=== PATIENT | female | born 1995 | race Hispanic/Latino ===

== ENCOUNTER 2016-10-02 12:40 | Emergency (ER) | payer OTHER ==
[2016-10-02] MEDS ORDERED: ACETAMINOPHEN 325 MG TAB As Ordered ONE (13:29)
[2016-10-02 13:48] LABS: BASO % 0.4 % (0.0-1.0); EOS # 0.6 K/mm3 (0.0-0.50); EOS % 4.8 % (0.0-3.0); LARGE UNSTAINED CELL # 0.2 K/mm3 (0.0-0.4); LARGE UNSTAINED CELL % 1.4 % (0.0-4.0); LYMPH # 1.5 K/mm3 (1.5-6.5); LYMPH % 12.9 % (24.0-44.0); MEAN CORPUSCULAR HEMOGLOBIN 29.1 pg (27.0-33.0); MEAN CORPUSCULAR HGB CONC 33.5 g/dl (32.0-36.5); MONO # 0.4 K/mm3 (0.0-0.8); MONO % 3.3 % (0.0-5.0); NEUTROPHILS # 8.9 K/mm3 (1.8-7.7); NEUTROPHILS % 77.3 % (36.0-66.0); PLATELET COUNT, AUTOMATED 204 k/mm3 (150-450); RED CELL DISTRIBUTION WIDTH 12.1 % (11.5-14.5); WHITE BLOOD COUNT 11.4 K/mm3 (4.0-10.0)
[2016-10-02 14:04] LABS: ALBUMIN 3.7 GM/DL (3.2-5.2); ALBUMIN/GLOBULIN RATIO 1.06 (1.00-1.93); ALKALINE PHOSPHATASE 60 U/L (45-117); ALT/SGPT 17 U/L (12-78); ANION GAP 10 MEQ/L (8-16); AST/SGOT 14 U/L (15-37); BILIRUBIN,DIRECT < 0.1 MG/DL (0.0-0.2); BILIRUBIN,TOTAL 0.2 MG/DL (0.2-1.0); BLOOD UREA NITROGEN 5 MG/DL (7-18); CARBON DIOXIDE LEVEL 23 MEQ/L (21-32); CHLORIDE LEVEL 107 MEQ/L (98-107); CREATININE FOR GFR 0.44 MG/DL (0.55-1.02); GLOMERULAR FILTRATION RATE > 60.0 (>60); GLUCOSE, FASTING 79 MG/DL (70-105); POTASSIUM SERUM 3.9 MEQ/L (3.5-5.1); SODIUM LEVEL 140 MEQ/L (136-145); TOTAL PROTEIN 7.2 GM/DL (6.4-8.2)
--- NOTE | 2016-10-02 15:30 | REP ---
Obstetric sonography: History: Left lower quadrant abdominal pain. Findings: No comparison study. Scanning through the gravid uterus demonstrates a viable single intrauterine gestation in a breech lie. An anterior placenta is seen without evidence of abruption. Amniotic fluid is subjectively normal. heart rate is recorded at 147 beats per minute. No extrauterine abnormality is observed. It is too early for anatomic survey but no gross anomaly is seen. Closed cervical length is 3.7 cm measured transabdominally. Biometry chart: BPD 2.7 cm = 14 weeks 6 days HC 10.6 cm = 15 weeks 0 days AC 8.6 cm = 14 weeks 6 days FL 1.5 cm = 14 weeks 3 days HL 1.8 cm = 15 weeks 1 day HC/AC ratio normal 1.23. Cephalic index 0.69 (0.70-0.86. Estimated weight 104 grams, 0 pounds 3 ounces, 24th percentile for 15 weeks 1 day. Impression: Viable single intrauterine gestation at 14 weeks 6 days by today's composite sonographic criteria. BRENDA by today's sonography March 27, 2017. No or maternal complication is identified. Signed by Tereso Glover MD 10/02/2016 04:20 P
--- NOTE | 2016-10-02 16:17 | EDDOCDS ---
Nurse's Notes [facility] Name: Aida Saunders Age: 21 yrs Sex: Female : 1995 Arrival Date: 10/02/2016 Time: 12:40 Bed 7 Private MD: SAIGE Nath Diagnosis: Abdominal and pelvic pain; related conditions, unspecified, second trimester Presentation: 10/02 12:45 Presenting complaint: EMS states: abd pain x2 days : 15 weeks . No vaginal ttb discharge. Coming from [place]. Risk factors: the patient reports no vaginal bleeding. Adult Sepsis Screening: The patient does not have new or worsening altered mentation. Patient's respiratory rate is less than 22. Systolic blood pressure is greater than 100. Patient has a qSOFA score of 0- Negative Sepsis Screen. Suicide/Homicide risk assessment- the patient denies having any suicidal and/or homicidal ideations and does not present with any other emotional, behavioral or mental health complaints. Transition of care: patient was received from a primary care office; Pham. 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 ttb Triage Assessment: 12:48 General: Appears in no apparent distress, well nourished, well groomed, Behavior is ttb appropriate for age, cooperative, pleasant. Pain: Location: left lower abd into center abd Pain currently is 7 out of 10 on a pain scale. Pt Declines HIV testing. Neurological: Level of Consciousness is awake, alert. Cardiovascular: Chest pain is denied. Respiratory: Denies cough, shortness of breath. GI: Reports constipation, lower abdominal pain, Denies diarrhea, nausea, vomiting. : Reports urinary frequency Denies burning with urination, urgency. Derm: Skin is normal. Musculoskeletal: Reports pain in lower abd. 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 Vitamin Unknown Oral (Last dose: 10/01/2016 12:00) - PMHx: asthma as child; - PSHx: none; - Social history: Smoking status: Patient states was never smoker of tobacco. Patient/guardian denies using alcohol, street drugs, No barriers to communication noted, The patient speaks fluent Eritrean, Speaks appropriately for age. - Family history: Not pertinent. - : The pt / caregiver states he / she is not on anticoagulants. Home medication list is obtained from the patient. - Exposure Risk Screening:: None identified. Screenin:00 Screening information is obtained from the patient. Fall risk: No risks identified. dsf Assistance ADL's: requires no assistance with activities of daily living. Abuse/DV Screen: The patient / caregiver reports he/she is: not in a situation that causes fear, pain or injury. Nutritional screening: No deficits noted. Advance Directives: Currently, there is no health care proxy. home support is adequate. Assessment: 13:11 Adult Sepsis Screening: The patient does not have new or worsening altered mentation. dsf Patient's respiratory rate is less than 22. Systolic blood pressure is greater than 100. Patient has a qSOFA score of 0- Negative Sepsis Screen. General: Appears in no apparent distress, Behavior is appropriate for age, cooperative. Pain: Location: suprapubic area and left lower quadrant Pain currently is 7 out of 10 on a pain scale. Quality of pain is described as stabbing. Neurological: Level of Consciousness is awake, alert, Oriented to person, place, time. Cardiovascular: Capillary refill < 3 seconds. Respiratory: Airway is patent Respiratory effort is even, unlabored, Respiratory pattern is regular, symmetrical. GI: Abdomen is flat. : Denies vaginal bleeding. Derm: Skin is pink, warm & dry. 14:11 General: Appears in no apparent distress, comfortable, Behavior is appropriate for age, dsf cooperative. Pain: Location: left lower quadrant and suprapubic area. Neurological: Level of Consciousness is awake, alert, Oriented to person, place, time. Cardiovascular: Capillary refill < 3 seconds Heart tones S1 S2 present. Respiratory: Airway is patent Respiratory effort is even, unlabored, Respiratory pattern is regular, symmetrical, Breath sounds are clear bilaterally. GI: Abdomen is non- distended Bowel sounds present X 4 quads. Abd is soft X 4 quads Abd is tender to palpation in right lower quadrant and left lower quadrant. Derm: Skin is pink, warm & dry. 14:52 General: Appears in no apparent distress, comfortable, Behavior is appropriate for age, dsf cooperative. Pain: Location: left lower quadrant and suprapubic area Pain currently is 7 out of 10 on a pain scale. Neurological: Level of Consciousness is awake, alert. Cardiovascular: Capillary refill < 3 seconds. Respiratory: Airway is patent Respiratory effort is even, unlabored, Respiratory pattern is regular, symmetrical. Derm: Skin is pink, warm & dry. 15:52 Adult Sepsis Screening: The patient does not have new or worsening altered mentation. dsf Patient's respiratory rate is less than 22. Systolic blood pressure is greater than 100. Patient has a qSOFA score of 0- Negative Sepsis Screen. General: Appears in no apparent distress, comfortable, Behavior is appropriate for age, cooperative. Pain: Location: left lower quadrant and suprapubic area. Neurological: Level of Consciousness is awake, alert, Oriented to person, place, time. Cardiovascular: Capillary refill < 3 seconds. Respiratory: Airway is patent Respiratory effort is even, unlabored, Respiratory pattern is regular, symmetrical. Derm: Skin is pink, warm & dry. Vital Signs: 12:47 BP 138 / 66; Pulse 76; Resp 18; Temp 98.4(T); Pulse Ox 100% on R/A; Pain 7/10; ad 14:33 Pain 7/10; dsf 15:56 BP 114 / 56 (auto/); Pulse 81; Resp 20; Temp 98.8(TE); Pulse Ox 99% on R/A; Pain 7/10; dsf Vitals: 12:48 Log In Time N/A - ambulance arrival. ttb 13:11 Heart Tones 138BPM. dsf ED Course: 12:41 Patient visited by Hilda Santana PCA. ct3 12:41 Pham [facility] [place] is Private Physician. ct3 12:41 Patient moved to Waiting ct3 12:42 Patient moved to 7 ct3 12:47 Triage Initiated ttb 12:48 Patient visited by Renee Palafox. ad 12:52 Patient visited by Abena Tarango RN. ttb 13:01 [facility] le 13:03 UA Sent. dsf 13:07 Patient visited by Fabiola Webster FNP. le 13:08 Patient visited by Fabiola Webster FNP. le 13:12 Patient visited by Mckenna Zapata RN. dsf 13:35 Basic Metabolic Profile Sent. dsf 13:35 CBC with Diff Sent. dsf 13:35 Lipase Sent. dsf 13:35 Liver Profile Sent. dsf 13:36 Patient visited by Mckenna Zapata RN. dsf 13:36 Inserted saline lock: 20 gauge in left antecubital area The patient tolerated the dsf procedure well. 14:18 Patient visited by Mckenna Zapata RN. dsf 14:29 Patient visited by Fabiola Webster FNP. le 14:37 Patient moved to Ultrasound am10 14:51 Patient moved to 7 dsf 14:53 Patient visited by Mckenna Zapata RN. dsf 15:36 US Obs Single Gest Returned. EDMS 15:36 DUPLEX SCAN LIMITED (DOPPLER) Returned. EDMS 15:51 Juan Manuel Sellers is Referral Physician. le 16:00 Discontinued lock intact, bleeding controlled, pressure dressing applied, No dsf redness/swelling at site. No procedures done that require assistance. 16:01 The patient / caregiver is instructed regarding the plan of care and ED course. dsf Administered Medications: 13:33 Drug: NS 0.9% 1000 ml [sodium chloride 0.9 % intravenous solution] Route: IV; Rate: ttb bolus; Site: left antecubital; 15:13 Follow up: IV Status: Completed infusion; IV Intake: 1000ml dsf 13:33 Drug: Acetaminophen 650 mg [acetaminophen 325 mg tablet (2 tabs)] Route: PO; ttb 14:33 Follow up: Pain 03/04 Adult dsf 15:13 Drug: NS 0.9% 1000 ml [sodium chloride 0.9 % injection solution] Route: IV; Rate: 100 dsf mL/hr; Site: left antecubital; 16:02 Follow up: IV Status: Infusion discontinued; IV Intake: 200ml dsf Intake: 15:13 IV: 1000.00ml; Total: 1000.00ml. dsf 16:02 IV: 200.00ml; Total: 1200.00ml. dsf Order Results: Lab Order: UA; SPEC'M 10/02/16 12:53 Test: APPEARANCE, URINE; Value: CLEAR; Range: CLEAR; Status: F Test: COLOR, URINE; Value: COLORLESS; Range: YELLOW; Status: F Test: PH,URINE; Value: 7.0; Range: 5.0-9.0; Units: UNITS; Status: F Test: SPECIFIC GRAVITY URINE AUTO; Value: 1.002; Range: 1.002-1.035; Status: F Test: PROTEIN, URINE AUTO; Value: NEGATIVE; Range: NEGATIVE; Units: mg/dL; Status: F Test: GLUCOSE, URINE (UA) AUTO; Value: NEGATIVE; Range: NEGATIVE; Units: mg/dL; Status: F Test: KETONE, URINE AUTO; Value: NEGATIVE; Range: NEGATIVE; Units: mg/dL; Status: F Test: UROBILINOGEN, URINE AUTO; Value: 0.2; Range: 0.0-2.0; Units: mg/dL; Status: F Test: BILIRUBIN, URINE AUTO; Value: NEGATIVE; Range: NEGATIVE; Status: F Test: NITRITE, URINE AUTO; Value: NEGATIVE; Range: NEGATIVE; Status: F Test: LEUKOCYTE ESTERASE, URINE AUTO; Value: NEGATIVE; Range: NEGATIVE; Status: F Test: BLOOD, URINE BLOOD; Value: NEGATIVE; Range: NEGATIVE; Status: F Test: WBC, URINE AUTO; Value: 0; Range: 0-3; Units: /HPF; Status: F Test: RBC, URINE AUTO; Value: 0; Range: 0-3; Units: /HPF; Status: F Test: BACTERIA, URINE AUTO; Value: 1+; Range: NEGATIVE; Abnormal: Above high normal; Status: F Test: SQUAMOUS EPITHELIAL CELL UR AU; Value: 0; Range: 0-6; Units: /HPF; Status: F Test: HYALINE CAST, URINE AUTO; Value: 0; Range: 0-1; Units: /LPF; Status: F Lab Order: Basic Metabolic Profile; [facility]' 10/02/16 13:34 Test: GLUCOSE, FASTING; Value: 79; Range: 70-105; Units: MG/DL; Status: F Test: BLOOD UREA NITROGEN; Value: 5; Range: 7-18; Abnormal: Below low normal; Units: MG/DL; Status: F Test: CREATININE FOR GFR; Value: 0.44; Range: 0.55-1.02; Abnormal: Below low normal; Units: MG/DL; Status: F Test: GLOMERULAR FILTRATION RATE; Value: > 60.0; Range: >60; Status: F Test: SODIUM LEVEL; Value: 140; Range: 136-145; Units: MEQ/L; Status: F Test: POTASSIUM SERUM; Value: 3.9; Range: 3.5-5.1; Units: MEQ/L; Status: F Test: CHLORIDE LEVEL; Value: 107; Range: 98-107; Units: MEQ/L; Status: F Test: CARBON DIOXIDE LEVEL; Value: 23; Range: 21-32; Units: MEQ/L; Status: F Test: ANION GAP; Value: 10; Range: 8-16; Units: MEQ/L; Status: F Test: CALCIUM LEVEL; Value: 9.0; Range: 8.5-10.1; Units: MG/DL; Status: F Test Note: ; Units are mL/min/1.73 m2 Chronic Kidney Disease Staging per NKF: Stage I & II GFR >=60 Normal to Mildly Decreased Stage III GFR 30-59 Moderately Decreased Stage IV GFR 15-29 Severely Decreased Stage V GFR <15 Very Little GFR Left ESRD GFR <15 on CLINICAL DERMATOLOGIST Lab Order: CBC with Diff; SPEC'M 10/02/16 13:34 Test: WHITE BLOOD COUNT; Value: 11.4; Range: 4.0-10.0; Abnormal: Above high normal; Units: K/mm3; Status: F Test: RED BLOOD COUNT; Value: 4.12; Range: 4.00-5.40; Units: M/mm3; Status: F Test: HEMOGLOBIN; Value: 12.0; Range: 12.0-16.0; Units: g/dl; Status: F Test: HEMATOCRIT; Value: 35.9; Range: 36.0-47.0; Abnormal: Below low normal; Units: %; Status: F Test: MEAN CORPUSCULAR VOLUME; Value: 87.0; Range: 80.0-96.0; Units: fl; Status: F Test: MEAN CORPUSCULAR HEMOGLOBIN; Value: 29.1; Range: 27.0-33.0; Units: pg; Status: F Test: MEAN CORPUSCULAR HGB CONC; Value: 33.5; Range: 32.0-36.5; Units: g/dl; Status: F Test: RED CELL DISTRIBUTION WIDTH; Value: 12.1; Range: 11.5-14.5; Units: %; Status: F Test: PLATELET COUNT, AUTOMATED; Value: 204; Range: 150-450; Units: k/mm3; Status: F Test: NEUTROPHILS %; Value: 77.3; Range: 36.0-66.0; Abnormal: Above high normal; Units: %; Status: F Test: LYMPH %; Value: 12.9; Range: 24.0-44.0; Abnormal: Below low normal; Units: %; Status: F Test: MONO %; Value: 3.3; Range: 0.0-5.0; Units: %; Status: F Test: EOS %; Value: 4.8; Range: 0.0-3.0; Abnormal: Above high normal; Units: %; Status: F Test: BASO %; Value: 0.4; Range: 0.0-1.0; Units: %; Status: F Test: LARGE UNSTAINED CELL %; Value: 1.4; Range: 0.0-4.0; Units: %; Status: F Test: NEUTROPHILS #; Value: 8.9; Range: 1.8-7.7; Abnormal: Above high normal; Units: K/mm3; Status: F Test: LYMPH #; Value: 1.5; Range: 1.5-6.5; Units: K/mm3; Status: F Test: MONO #; Value: 0.4; Range: 0.0-0.8; Units: K/mm3; Status: F Test: EOS #; Value: 0.6; Range: 0.0-0.50; Abnormal: Above high normal; Units: K/mm3; Status: F Test: BASO #; Value: 0.0; Range: 0.0-0.2; Units: K/mm3; Status: F Test: LARGE UNSTAINED CELL #; Value: 0.2; Range: 0.0-0.4; Units: K/mm3; Status: F Lab Order: Lipase; SPEC'10/02/16 13:34 Test: LIPASE; Value: 86; Range: 73-393; Units: U/L; Status: F Lab Order: Liver Profile; SPEC10/02/16 13:34 Test: AST/SGOT; Value: 14; Range: 15-37; Abnormal: Below low normal; Units: U/L; Status: F Test: ALT/SGPT; Value: 17; Range: 12-78; Units: U/L; Status: F Test: ALKALINE PHOSPHATASE; Value: 60; Range: 45-117; Units: U/L; Status: F Test: BILIRUBIN,TOTAL; Value: 0.2; Range: 0.2-1.0; Units: MG/DL; Status: F Test: BILIRUBIN,DIRECT; Value: < 0.1; Range: 0.0-0.2; Units: MG/DL; Status: F Test: TOTAL PROTEIN; Value: 7.2; Range: 6.4-8.2; Units: GM/DL; Status: F Test: ALBUMIN; Value: 3.7; Range: 3.2-5.2; Units: GM/DL; Status: F Test: ALBUMIN/GLOBULIN RATIO; Value: 1.06; Range: 1.00-1.93; Status: F Radiology Order: US Obs Single Gest Test: US Obs Single Gest REASON FOR EXAMINATION: LLQ abd pain, ? cyst vs constipation; Obstetric sonography:; ; History: Left lower quadrant abdominal pain.; ; Findings: No comparison study. Scanning through the gravid uterus demonstrates; a viable single intrauterine gestation in a breech lie. An anterior; placenta is seen without evidence of abruption. Amniotic fluid is subjectively; normal. heart rate is recorded at 147 beats per minute. No extrauterine; abnormality is observed. It is too early for anatomic survey but no gross; anomaly is seen. Closed cervical length is 3.7 cm measured; transabdominally.; ; Biometry chart:; BPD 2.7 cm = 14 weeks 6 days; HC 10.6 cm = 15 weeks 0 days; AC 8.6 cm = 14 weeks 6 days; FL 1.5 cm = 14 weeks 3 days; HL 1.8 cm = 15 weeks 1 day; ; HC/AC ratio normal 1.23. Cephalic index 0.69 (0.70-0.86. Estimated weight; 104 grams, 0 pounds 3 ounces, 24th percentile for 15 weeks 1 day.; ; Impression:; ; Viable single intrauterine gestation at 14 weeks 6 days by today's composite; sonographic criteria. BRENDA by today's sonography March 27, 2017. No or; maternal complication is identified.; ; ; ; ; Unreviewed; Radiology Order: DUPLEX SCAN LIMITED (DOPPLER) Test: DUPLEX SCAN LIMITED (DOPPLER) REASON FOR EXAMINATION: RI OF OVARIES; Obstetric sonography:; ; History: Left lower quadrant abdominal pain.; ; Findings: No comparison study. Scanning through the gravid uterus demonstrates; a viable single intrauterine gestation in a breech lie. An anterior; placenta is seen without evidence of abruption. Amniotic fluid is subjectively; normal. heart rate is recorded at 147 beats per minute. No extrauterine; abnormality is observed. It is too early for anatomic survey but no gross; anomaly is seen. Closed cervical length is 3.7 cm measured; transabdominally.; ; Biometry chart:; BPD 2.7 cm = 14 weeks 6 days; HC 10.6 cm = 15 weeks 0 days; AC 8.6 cm = 14 weeks 6 days; FL 1.5 cm = 14 weeks 3 days; HL 1.8 cm = 15 weeks 1 day; ; HC/AC ratio normal 1.23. Cephalic index 0.69 (0.70-0.86. Estimated weight; 104 grams, 0 pounds 3 ounces, 24th percentile for 15 weeks 1 day.; ; Impression:; ; Viable single intrauterine gestation at 14 weeks 6 days by today's composite; sonographic criteria. BRENDA by today's sonography March 27, 2017. No or; maternal complication is identified.; ; ; ; ; Unreviewed; Outcome: 15:51 Discharge ordered by Provider. le 16:01 Ultrasound Study completed. dsf 16:14 Discharge Assessment: Patient awake, alert and oriented x 3. No cognitive and/or dsf functional deficits noted. Patient verbalized understanding of disposition instructions. patient administered narcotics - no. The following High Risk Discharge criteria are identified: None. Discharged to home ambulatory. Condition: stable. Discharge instructions given to patient, Instructed on discharge instructions, follow up and referral plans. Demonstrated understanding of instructions, Pt was receptive of discharge instructions/ teaching. Property sent home with patient. 16:15 Patient left the ED. dsf Signatures: Dispatcher [employer] EDMS Renee Palafox Lisa, Rhona Bah am10 Hilda Santana, DOCUMENT MANAGEMENT TECHNICIAN DOCUMENT MANAGEMENT TECHNICIAN ct3 Mckenna Zapata,RN RN dsf Abena Traango RN RN ttb Corrections: (The following items were deleted from the chart) 12:51 12:45 Status: The patient is a dependent. ttb ttb MTDD
--- NOTE | 2016-10-02 16:17 | EDDOCDS ---
Physician Documentation [facility] Name: Aida Saunders Age: 21 yrs Sex: Female : 1995 Arrival Date: 10/02/2016 Time: 12:40 Bed 7 Private MD: Pham [facility] [place] [facility] Disposition: 10/02/16 15:51 Discharged to Home/Self Care. Impression: Abdominal and pelvic pain, related conditions, unspecified, second trimester. - Condition is Stable. - Discharge Instructions: Second Trimester of , [id number]. - Medication Reconciliation, Local Pharmacy Hours form. - Follow up: Juan Manuel Sellers; When: Keep your scheduled appointment next week; Reason: Recheck today's complaints, Continuance of care. - Problem is new. - Symptoms are unchanged. - Notes: Keep hydrated Use Tylenol, as needed, for pain Your pain may be due to constipation. Use Miralax daily to soften up stool to move through the intestines easier. Return to the ED for worsening symptoms, especially if you're also experiencing fever, vomiting/diarrhea, vaginal bleeding/discharge, urinary symptoms or any other concerns Historical: - Allergies: no known allergies; - Home Meds: 1. Vitamin Unknown Oral (Last dose: 10/01/2016 12:00) - PMHx: asthma as child; - PSHx: none; - Social history: Smoking status: Patient states was never smoker of tobacco. Patient/guardian denies using alcohol, street drugs, No barriers to communication noted, The patient speaks fluent Ukrainian, Speaks appropriately for age. - Family history: Not pertinent. - : The pt / caregiver states he / she is not on anticoagulants. Home medication list is obtained from the patient. - Exposure Risk Screening:: None identified. 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 sd1 13:01 UA Ordered. EDMS 13:21 NS 0.9% 1000 ml IV at bolus once ordered. le 13:21 NS 0.9% 1000 ml IV at 100 mL/hr continuous ordered. le 13:21 IV Saline Lock ordered. le 13:21 Undress patient appropriately for examination ordered. le 13:21 Acetaminophen Tablet 650 mg PO once ordered. le 13:22 NOTHING BY MOUTH+DIET ordered. EDMS 13:23 Basic Metabolic Profile Ordered. EDMS 13:23 CBC with Diff Ordered. EDMS 13:23 Lipase Ordered. EDMS 13:23 Liver Profile Ordered. EDMS 14:27 UA Reviewed. le 14:27 Basic Metabolic Profile Reviewed. le 14:27 CBC with Diff Reviewed. le 14:27 Liver Profile Reviewed. le 14:27 Lipase Reviewed. le 14:30 US Obs Single Gest Ordered. EDMS 14:53 DUPLEX SCAN LIMITED (DOPPLER) Ordered. EDMS 15:44 Financial registration complete. [email or web address] Administered Medications: 13:33 Drug: NS 0.9% 1000 ml [sodium chloride 0.9 % intravenous solution] Route: IV; Rate: ttb bolus; Site: left antecubital; 15:13 Follow up: IV Status: Completed infusion; IV Intake: 1000ml dsf 13:33 Drug: Acetaminophen 650 mg [acetaminophen 325 mg tablet (2 tabs)] Route: PO; ttb 14:33 Follow up: Pain 7/10 Adult dsf 15:13 Drug: NS 0.9% 1000 ml [sodium chloride 0.9 % injection solution] Route: IV; Rate: 100 dsf mL/hr; Site: left antecubital; 16:02 Follow up: IV Status: Infusion discontinued; IV Intake: 200ml dsf Signatures: Dispatcher [employer] EDMS Arlene Akbar MD MD sd1 Fabiola Webster, MACHINE SHOP SPECIALIST MACHINE SHOP SPECIALIST Mckenna Morales RN RN dsf Abena Tarango RN RN ttb Lily Zuñiga, Reg Reg [email or web address] The chart was reviewed and I authenticate all verbal orders and agree with the evaluation and treatment provided.Corrections: (The following items were deleted from the chart) 13:05 13:01 URINE CULTURE+MALCOLM ordered. EDMS EDMS MTDD
--- NOTE | 2016-10-04 17:16 | EDDOCDS ---
Physician Documentation [facility] Name: Aida Saunders Age: 21 yrs Sex: Female : 1995 Arrival Date: 10/02/2016 Time: 12:40 Bed 7 Private MD: Pham [facility] Disposition: 10/02/16 15:51 Discharged to Home/Self Care. Impression: Abdominal and pelvic pain, related conditions, unspecified, second trimester. - Condition is Stable. - Discharge Instructions: Second Trimester of , [id number]. - Medication Reconciliation, Local Pharmacy Hours form. - Follow up: Juan Manuel Sellers; When: Keep your scheduled appointment next week; Reason: Recheck today's complaints, Continuance of care. - Problem is new. - Symptoms are unchanged. - Notes: Keep hydrated Use Tylenol, as needed, for pain Your pain may be due to constipation. Use Miralax daily to soften up stool to move through the intestines easier. Return to the ED for worsening symptoms, especially if you're also experiencing fever, vomiting/diarrhea, vaginal bleeding/discharge, urinary symptoms or any other concerns Historical: - Allergies: no known allergies; - Home Meds: 1. Vitamin Unknown Oral (Last dose: 10/01/2016 12:00) - PMHx: asthma as child; - PSHx: none; - Social history: Smoking status: Patient states was never smoker of tobacco. Patient/guardian denies using alcohol, street drugs, No barriers to communication noted, The patient speaks fluent Khmer, Speaks appropriately for age. - Family history: Not pertinent. - : The pt / caregiver states he / she is not on anticoagulants. Home medication list is obtained from the patient. - Exposure Risk Screening:: None identified. 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 sd1 13:01 UA Ordered. EDMS 13:21 NS 0.9% 1000 ml IV at bolus once ordered. le 13:21 NS 0.9% 1000 ml IV at 100 mL/hr continuous ordered. le 13:21 IV Saline Lock ordered. le 13:21 Undress patient appropriately for examination ordered. le 13:21 Acetaminophen Tablet 650 mg PO once ordered. le 13:22 NOTHING BY MOUTH+DIET ordered. EDMS 13:23 Basic Metabolic Profile Ordered. EDMS 13:23 CBC with Diff Ordered. EDMS 13:23 Lipase Ordered. EDMS 13:23 Liver Profile Ordered. EDMS 14:27 UA Reviewed. le 14:27 Basic Metabolic Profile Reviewed. le 14:27 CBC with Diff Reviewed. le 14:27 Liver Profile Reviewed. le 14:27 Lipase Reviewed. le 14:30 US Obs Single Gest Ordered. EDMS 14:53 DUPLEX SCAN LIMITED (DOPPLER) Ordered. EDMS 15:44 Financial registration complete. [email or web address] 16:48 [facility] Payment Agreement was scanned into [employer] and attached to record. [email or web address] 10/03 11:23 T-Sheet-- Draft Copy was scanned into [employer] and attached to record. gb Administered Medications: 10/02 13:33 Drug: NS 0.9% 1000 ml [sodium chloride 0.9 % intravenous solution] Route: IV; Rate: ttb bolus; Site: left antecubital; 15:13 Follow up: IV Status: Completed infusion; IV Intake: 1000ml dsf 13:33 Drug: Acetaminophen 650 mg [acetaminophen 325 mg tablet (2 tabs)] Route: PO; ttb 14:33 Follow up: Pain 7/10 Adult dsf 15:13 Drug: NS 0.9% 1000 ml [sodium chloride 0.9 % injection solution] Route: IV; Rate: 100 dsf mL/hr; Site: left antecubital; 16:02 Follow up: IV Status: Infusion discontinued; IV Intake: 200ml dsf Signatures: Dispatcher [employer] EDArlene Freeman MD MD sd1 Aundrea Guardado, Reg Reg gb Fabiola Webster, ENTRY LEVEL TRUCK DRIVER Mckenna Pride RN RN dsf Abena Tarango RN RN ttb Lily Zuñiga, Reg Reg [email or web address] The chart was reviewed and I authenticate all verbal orders and agree with the evaluation and treatment provided.Corrections: (The following items were deleted from the chart) 13:05 13:01 URINE CULTURE+MALCOLM ordered. EDMS EDMS Attachments: 16:48 [facility] Payment Agreement [email or web address] 10/03 11:23 T-Sheet-- Draft Copy gb Chart Complete MTDD
--- NOTE | 2016-10-04 17:16 | EDDOCDS ---
Nurse's Notes [facility] Name: Aida Saunders Age: 21 yrs Sex: Female : 1995 Arrival Date: 10/02/2016 Time: 12:40 Bed 7 Private MD: SAIGE Nath Diagnosis: Abdominal and pelvic pain; related conditions, unspecified, second trimester Presentation: 10/02 12:45 Presenting complaint: EMS states: abd pain x2 days : 15 weeks . No vaginal ttb discharge. Coming from [place]. Risk factors: the patient reports no vaginal bleeding. Adult Sepsis Screening: The patient does not have new or worsening altered mentation. Patient's respiratory rate is less than 22. Systolic blood pressure is greater than 100. Patient has a qSOFA score of 0- Negative Sepsis Screen. Suicide/Homicide risk assessment- the patient denies having any suicidal and/or homicidal ideations and does not present with any other emotional, behavioral or mental health complaints. Transition of care: patient was received from a primary care office; Pham. 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 ttb Triage Assessment: 12:48 General: Appears in no apparent distress, well nourished, well groomed, Behavior is ttb appropriate for age, cooperative, pleasant. Pain: Location: left lower abd into center abd Pain currently is 7 out of 10 on a pain scale. Pt Declines HIV testing. Neurological: Level of Consciousness is awake, alert. Cardiovascular: Chest pain is denied. Respiratory: Denies cough, shortness of breath. GI: Reports constipation, lower abdominal pain, Denies diarrhea, nausea, vomiting. : Reports urinary frequency Denies burning with urination, urgency. Derm: Skin is normal. Musculoskeletal: Reports pain in lower abd. CAR PORTER: 12:48 LMP 06/18/2016 ttb Historical: - Allergies: no known allergies; - Home Meds: 1. Vitamin Unknown Oral (Last dose: 10/01/2016 12:00) - PMHx: asthma as child; - PSHx: none; - Social history: Smoking status: Patient states was never smoker of tobacco. Patient/guardian denies using alcohol, street drugs, No barriers to communication noted, The patient speaks fluent Senegalese, Speaks appropriately for age. - Family history: Not pertinent. - : The pt / caregiver states he / she is not on anticoagulants. Home medication list is obtained from the patient. - Exposure Risk Screening:: None identified. Screenin:00 Screening information is obtained from the patient. Fall risk: No risks identified. dsf Assistance ADL's: requires no assistance with activities of daily living. Abuse/DV Screen: The patient / caregiver reports he/she is: not in a situation that causes fear, pain or injury. Nutritional screening: No deficits noted. Advance Directives: Currently, there is no health care proxy. home support is adequate. Assessment: 13:11 Adult Sepsis Screening: The patient does not have new or worsening altered mentation. dsf Patient's respiratory rate is less than 22. Systolic blood pressure is greater than 100. Patient has a qSOFA score of 0- Negative Sepsis Screen. General: Appears in no apparent distress, Behavior is appropriate for age, cooperative. Pain: Location: suprapubic area and left lower quadrant Pain currently is 7 out of 10 on a pain scale. Quality of pain is described as stabbing. Neurological: Level of Consciousness is awake, alert, Oriented to person, place, time. Cardiovascular: Capillary refill < 3 seconds. Respiratory: Airway is patent Respiratory effort is even, unlabored, Respiratory pattern is regular, symmetrical. GI: Abdomen is flat. : Denies vaginal bleeding. Derm: Skin is pink, warm & dry. 14:11 General: Appears in no apparent distress, comfortable, Behavior is appropriate for age, dsf cooperative. Pain: Location: left lower quadrant and suprapubic area. Neurological: Level of Consciousness is awake, alert, Oriented to person, place, time. Cardiovascular: Capillary refill < 3 seconds Heart tones S1 S2 present. Respiratory: Airway is patent Respiratory effort is even, unlabored, Respiratory pattern is regular, symmetrical, Breath sounds are clear bilaterally. GI: Abdomen is non- distended Bowel sounds present X 4 quads. Abd is soft X 4 quads Abd is tender to palpation in right lower quadrant and left lower quadrant. Derm: Skin is pink, warm & dry. 14:52 General: Appears in no apparent distress, comfortable, Behavior is appropriate for age, dsf cooperative. Pain: Location: left lower quadrant and suprapubic area Pain currently is 7 out of 10 on a pain scale. Neurological: Level of Consciousness is awake, alert. Cardiovascular: Capillary refill < 3 seconds. Respiratory: Airway is patent Respiratory effort is even, unlabored, Respiratory pattern is regular, symmetrical. Derm: Skin is pink, warm & dry. 15:52 Adult Sepsis Screening: The patient does not have new or worsening altered mentation. dsf Patient's respiratory rate is less than 22. Systolic blood pressure is greater than 100. Patient has a qSOFA score of 0- Negative Sepsis Screen. General: Appears in no apparent distress, comfortable, Behavior is appropriate for age, cooperative. Pain: Location: left lower quadrant and suprapubic area. Neurological: Level of Consciousness is awake, alert, Oriented to person, place, time. Cardiovascular: Capillary refill < 3 seconds. Respiratory: Airway is patent Respiratory effort is even, unlabored, Respiratory pattern is regular, symmetrical. Derm: Skin is pink, warm & dry. Vital Signs: 12:47 BP 138 / 66; Pulse 76; Resp 18; Temp 98.4(T); Pulse Ox 100% on R/A; Pain 7/10; ad 14:33 Pain 7/10; dsf 15:56 BP 114 / 56 (auto/); Pulse 81; Resp 20; Temp 98.8(TE); Pulse Ox 99% on R/A; Pain 7/10; dsf Vitals: 12:48 Log In Time N/A - ambulance arrival. ttb 13:11 Heart Tones 138BPM. dsf ED Course: 12:41 Patient visited by Hilda Sanatna PCA. ct3 12:41 Pham [facility] [place] [place] is Private Physician. ct3 12:41 Patient moved to Waiting ct3 12:42 Patient moved to 7 ct3 12:47 Triage Initiated ttb 12:48 Patient visited by Renee Palafox. ad 12:52 Patient visited by Abena Tarango RN. ttb 13:01 [facility] le 13:03 UA Sent. dsf 13:07 Patient visited by Fabiola Webster FNP. le 13:08 Patient visited by Fabiola Webster FNP. le 13:12 Patient visited by Mckenna Zapata RN. dsf 13:35 Basic Metabolic Profile Sent. dsf 13:35 CBC with Diff Sent. dsf 13:35 Lipase Sent. dsf 13:35 Liver Profile Sent. dsf 13:36 Patient visited by Mckenna Zapata RN. dsf 13:36 Inserted saline lock: 20 gauge in left antecubital area The patient tolerated the dsf procedure well. 14:18 Patient visited by Mckenna Zapata RN. dsf 14:29 Patient visited by Fabiola Webster FNP. le 14:37 Patient moved to Ultrasound am10 14:51 Patient moved to 7 dsf 14:53 Patient visited by Mckenna Zapata RN. dsf 15:36 US Obs Single Gest Returned. EDMS 15:36 DUPLEX SCAN LIMITED (DOPPLER) Returned. EDMS 15:51 Juan Manuel Sellers is Referral Physician. le 16:00 Discontinued lock intact, bleeding controlled, pressure dressing applied, No dsf redness/swelling at site. No procedures done that require assistance. 16:01 The patient / caregiver is instructed regarding the plan of care and ED course. dsf 16:47 Patient name changed from Irisbelle\S\\S\Lacourt\S\ to Irisbelle\S\ \S\Lacourt. EDMS 16:48 [facility] Payment Agreement was scanned into [employer] and attached to record. [email or web address] 10/03 11:23 T-Sheet-- Draft Copy was scanned into [employer] and attached to record. gb Administered Medications: 10/02 13:33 Drug: NS 0.9% 1000 ml [sodium chloride 0.9 % intravenous solution] Route: IV; Rate: ttb bolus; Site: left antecubital; 15:13 Follow up: IV Status: Completed infusion; IV Intake: 1000ml dsf 13:33 Drug: Acetaminophen 650 mg [acetaminophen 325 mg tablet (2 tabs)] Route: PO; ttb 14:33 Follow up: Pain 03/04 Adult dsf 15:13 Drug: NS 0.9% 1000 ml [sodium chloride 0.9 % injection solution] Route: IV; Rate: 100 dsf mL/hr; Site: left antecubital; 16:02 Follow up: IV Status: Infusion discontinued; IV Intake: 200ml dsf Intake: 15:13 IV: 1000.00ml; Total: 1000.00ml. dsf 16:02 IV: 200.00ml; Total: 1200.00ml. dsf Order Results: Lab Order: UA; SPEC'M 10/02/16 12:53 Test: APPEARANCE, URINE; Value: CLEAR; Range: CLEAR; Status: F Test: COLOR, URINE; Value: COLORLESS; Range: YELLOW; Status: F Test: PH,URINE; Value: 7.0; Range: 5.0-9.0; Units: UNITS; Status: F Test: SPECIFIC GRAVITY URINE AUTO; Value: 1.002; Range: 1.002-1.035; Status: F Test: PROTEIN, URINE AUTO; Value: NEGATIVE; Range: NEGATIVE; Units: mg/dL; Status: F Test: GLUCOSE, URINE (UA) AUTO; Value: NEGATIVE; Range: NEGATIVE; Units: mg/dL; Status: F Test: KETONE, URINE AUTO; Value: NEGATIVE; Range: NEGATIVE; Units: mg/dL; Status: F Test: UROBILINOGEN, URINE AUTO; Value: 0.2; Range: 0.0-2.0; Units: mg/dL; Status: F Test: BILIRUBIN, URINE AUTO; Value: NEGATIVE; Range: NEGATIVE; Status: F Test: NITRITE, URINE AUTO; Value: NEGATIVE; Range: NEGATIVE; Status: F Test: LEUKOCYTE ESTERASE, URINE AUTO; Value: NEGATIVE; Range: NEGATIVE; Status: F Test: BLOOD, URINE BLOOD; Value: NEGATIVE; Range: NEGATIVE; Status: F Test: WBC, URINE AUTO; Value: 0; Range: 0-3; Units: /HPF; Status: F Test: RBC, URINE AUTO; Value: 0; Range: 0-3; Units: /HPF; Status: F Test: BACTERIA, URINE AUTO; Value: 1+; Range: NEGATIVE; Abnormal: Above high normal; Status: F Test: SQUAMOUS EPITHELIAL CELL UR AU; Value: 0; Range: 0-6; Units: /HPF; Status: F Test: HYALINE CAST, URINE AUTO; Value: 0; Range: 0-1; Units: /LPF; Status: F Lab Order: Basic Metabolic Profile; SPEC'M 10/02/16 13:34 Test: GLUCOSE, FASTING; Value: 79; Range: 70-105; Units: MG/DL; Status: F Test: BLOOD UREA NITROGEN; Value: 5; Range: 7-18; Abnormal: Below low normal; Units: MG/DL; Status: F Test: CREATININE FOR GFR; Value: 0.44; Range: 0.55-1.02; Abnormal: Below low normal; Units: MG/DL; Status: F Test: GLOMERULAR FILTRATION RATE; Value: > 60.0; Range: >60; Status: F Test: SODIUM LEVEL; Value: 140; Range: 136-145; Units: MEQ/L; Status: F Test: POTASSIUM SERUM; Value: 3.9; Range: 3.5-5.1; Units: MEQ/L; Status: F Test: CHLORIDE LEVEL; Value: 107; Range: 98-107; Units: MEQ/L; Status: F Test: CARBON DIOXIDE LEVEL; Value: 23; Range: 21-32; Units: MEQ/L; Status: F Test: ANION GAP; Value: 10; Range: 8-16; Units: MEQ/L; Status: F Test: CALCIUM LEVEL; Value: 9.0; Range: 8.5-10.1; Units: MG/DL; Status: F Test Note: ; Units are mL/min/1.73 m2 Chronic Kidney Disease Staging per NKF: Stage I & II GFR >=60 Normal to Mildly Decreased Stage III GFR 30-59 Moderately Decreased Stage IV GFR 15-29 Severely Decreased Stage V GFR <15 Very Little GFR Left ESRD GFR <15 on SLAT BASK[employer] TOP MA[employer]ER Lab Order: CBC with Diff; SPEC'M 10/02/16 13:34 Test: WHITE BLOOD COUNT; Value: 11.4; Range: 4.0-10.0; Abnormal: Above high normal; Units: K/mm3; Status: F Test: RED BLOOD COUNT; Value: 4.12; Range: 4.00-5.40; Units: M/mm3; Status: F Test: HEMOGLOBIN; Value: 12.0; Range: 12.0-16.0; Units: g/dl; Status: F Test: HEMATOCRIT; Value: 35.9; Range: 36.0-47.0; Abnormal: Below low normal; Units: %; Status: F Test: MEAN CORPUSCULAR VOLUME; Value: 87.0; Range: 80.0-96.0; Units: fl; Status: F Test: MEAN CORPUSCULAR HEMOGLOBIN; Value: 29.1; Range: 27.0-33.0; Units: pg; Status: F Test: MEAN CORPUSCULAR HGB CONC; Value: 33.5; Range: 32.0-36.5; Units: g/dl; Status: F Test: RED CELL DISTRIBUTION WIDTH; Value: 12.1; Range: 11.5-14.5; Units: %; Status: F Test: PLATELET COUNT, AUTOMATED; Value: 204; Range: 150-450; Units: k/mm3; Status: F Test: NEUTROPHILS %; Value: 77.3; Range: 36.0-66.0; Abnormal: Above high normal; Units: %; Status: F Test: LYMPH %; Value: 12.9; Range: 24.0-44.0; Abnormal: Below low normal; Units: %; Status: F Test: MONO %; Value: 3.3; Range: 0.0-5.0; Units: %; Status: F Test: EOS %; Value: 4.8; Range: 0.0-3.0; Abnormal: Above high normal; Units: %; Status: F Test: BASO %; Value: 0.4; Range: 0.0-1.0; Units: %; Status: F Test: LARGE UNSTAINED CELL %; Value: 1.4; Range: 0.0-4.0; Units: %; Status: F Test: NEUTROPHILS #; Value: 8.9; Range: 1.8-7.7; Abnormal: Above high normal; Units: K/mm3; Status: F Test: LYMPH #; Value: 1.5; Range: 1.5-6.5; Units: K/mm3; Status: F Test: MONO #; Value: 0.4; Range: 0.0-0.8; Units: K/mm3; Status: F Test: EOS #; Value: 0.6; Range: 0.0-0.50; Abnormal: Above high normal; Units: K/mm3; Status: F Test: BASO #; Value: 0.0; Range: 0.0-0.2; Units: K/mm3; Status: F Test: LARGE UNSTAINED CELL #; Value: 0.2; Range: 0.0-0.4; Units: K/mm3; Status: F Lab Order: Lipase; SPEC'M 10/02/16 13:34 Test: LIPASE; Value: 86; Range: 73-393; Units: U/L; Status: F Lab Order: Liver Profile; SPEC'M 10/02/16 13:34 Test: AST/SGOT; Value: 14; Range: 15-37; Abnormal: Below low normal; Units: U/L; Status: F Test: ALT/SGPT; Value: 17; Range: 12-78; Units: U/L; Status: F Test: ALKALINE PHOSPHATASE; Value: 60; Range: 45-117; Units: U/L; Status: F Test: BILIRUBIN,TOTAL; Value: 0.2; Range: 0.2-1.0; Units: MG/DL; Status: F Test: BILIRUBIN,DIRECT; Value: < 0.1; Range: 0.0-0.2; Units: MG/DL; Status: F Test: TOTAL PROTEIN; Value: 7.2; Range: 6.4-8.2; Units: GM/DL; Status: F Test: ALBUMIN; Value: 3.7; Range: 3.2-5.2; Units: GM/DL; Status: F Test: ALBUMIN/GLOBULIN RATIO; Value: 1.06; Range: 1.00-1.93; Status: F Radiology Order: US Obs Single Gest Test: US Obs Single Gest REASON FOR EXAMINATION: LLQ abd pain, ? cyst vs constipation; Obstetric sonography:; ; History: Left lower quadrant abdominal pain.; ; Findings: No comparison study. Scanning through the gravid uterus demonstrates; a viable single intrauterine gestation in a breech lie. An anterior; placenta is seen without evidence of abruption. Amniotic fluid is subjectively; normal. heart rate is recorded at 147 beats per minute. No extrauterine; abnormality is observed. It is too early for anatomic survey but no gross; anomaly is seen. Closed cervical length is 3.7 cm measured; transabdominally.; ; Biometry chart:; ; BPD 2.7 cm = 14 weeks 6 days; ; HC 10.6 cm = 15 weeks 0 days; ; AC 8.6 cm = 14 weeks 6 days; ; FL 1.5 cm = 14 weeks 3 days; ; HL 1.8 cm = 15 weeks 1 day; ; HC/AC ratio normal 1.23.; ; Cephalic index 0.69 (0.70-0.86.; ; Estimated weight 104 grams, 0 pounds 3 ounces, 24th percentile for 15 weeks; 1 day.; ; Impression:; ; Viable single intrauterine gestation at 14 weeks 6 days by today's composite; sonographic criteria. BRENDA by today's sonography March 27, 2017. No or; maternal complication is identified.; ; ; Signed by; Tereso Glover MD 10/02/2016 04:20 P; Radiology Order: DUPLEX SCAN LIMITED (DOPPLER) Test: DUPLEX SCAN LIMITED (DOPPLER) REASON FOR EXAMINATION: RI OF OVARIES; Obstetric sonography:; ; History: Left lower quadrant abdominal pain.; ; Findings: No comparison study. Scanning through the gravid uterus demonstrates; a viable single intrauterine gestation in a breech lie. An anterior; placenta is seen without evidence of abruption. Amniotic fluid is subjectively; normal. heart rate is recorded at 147 beats per minute. No extrauterine; abnormality is observed. It is too early for anatomic survey but no gross; anomaly is seen. Closed cervical length is 3.7 cm measured; transabdominally.; ; Biometry chart:; ; BPD 2.7 cm = 14 weeks 6 days; ; HC 10.6 cm = 15 weeks 0 days; ; AC 8.6 cm = 14 weeks 6 days; ; FL 1.5 cm = 14 weeks 3 days; ; HL 1.8 cm = 15 weeks 1 day; ; HC/AC ratio normal 1.23.; ; Cephalic index 0.69 (0.70-0.86.; ; Estimated weight 104 grams, 0 pounds 3 ounces, 24th percentile for 15 weeks; 1 day.; ; Impression:; ; Viable single intrauterine gestation at 14 weeks 6 days by today's composite; sonographic criteria. BRENDA by today's sonography March 27, 2017. No or; maternal complication is identified.; ; ; Signed by; Tereso Glover MD 10/02/2016 04:20 P; Outcome: 15:51 Discharge ordered by Provider. le 16:01 Ultrasound Study completed. dsf 16:14 Discharge Assessment: Patient awake, alert and oriented x 3. No cognitive and/or dsf functional deficits noted. Patient verbalized understanding of disposition instructions. patient administered narcotics - no. The following High Risk Discharge criteria are identified: None. Discharged to home ambulatory. Condition: stable. Discharge instructions given to patient, Instructed on discharge instructions, follow up and referral plans. Demonstrated understanding of instructions, Pt was receptive of discharge instructions/ teaching. Property sent home with patient. 16:15 Patient left the ED. dsf Signatures: Dispatcher [employer] EDMS Aundrea Guardado, Reg Reg gb Javy, Fabiola Cintron, HANDSTITCHING MACHINE ARMHOLE FELLER HANDSTITCHING MACHINE ARMHOLE FELLER Rhona Soria am10 Max, Hilda, KNITTING MACHINE FIXER KNITTING MACHINE FIXER ct3 Mckenna Zapata RN RN dsf Abena Tarango RN RN ttb Lily Zuñiga, Reg Reg [email or web address] Corrections: (The following items were deleted from the chart) 12:51 12:45 Status: The patient is a dependent. ttb ttb Chart Complete MTDD
--- NOTE | 2016-10-04 17:16 | EDDOCDS ---
Physician Documentation [facility] Name: Aida Saunders Age: 21 yrs Sex: Female : 1995 Arrival Date: 10/02/2016 Time: 12:40 Bed 7 Private MD: Pham [facility] [place] Disposition: 10/02/16 15:51 Discharged to Home/Self Care. Impression: Abdominal and pelvic pain, related conditions, unspecified, second trimester. - Condition is Stable. - Discharge Instructions: Second Trimester of , [id number]. - Medication Reconciliation, Local Pharmacy Hours form. - Follow up: Juan Manuel Sellers; When: Keep your scheduled appointment next week; Reason: Recheck today's complaints, Continuance of care. - Problem is new. - Symptoms are unchanged. - Notes: Keep hydrated Use Tylenol, as needed, for pain Your pain may be due to constipation. Use Miralax daily to soften up stool to move through the intestines easier. Return to the ED for worsening symptoms, especially if you're also experiencing fever, vomiting/diarrhea, vaginal bleeding/discharge, urinary symptoms or any other concerns Historical: - Allergies: no known allergies; - Home Meds: 1. Vitamin Unknown Oral (Last dose: 10/01/2016 12:00) - PMHx: asthma as child; - PSHx: none; - Social history: Smoking status: Patient states was never smoker of tobacco. Patient/guardian denies using alcohol, street drugs, No barriers to communication noted, The patient speaks fluent [place], Speaks appropriately for age. - Family history: Not pertinent. - : The pt / caregiver states he / she is not on anticoagulants. Home medication list is obtained from the patient. - Exposure Risk Screening:: None identified. INVENTORY COORDINATOR: 10/02 12:48 LMP 06/18/2016 ttb Vital Signs: 12:47 BP 138 / 66; Pulse 76; Resp 18; Temp 98.4(T); Pulse Ox 100% on R/A; Pain 7/10; ad 14:33 Pain 7/10; dsf 15:56 BP 114 / 56 (auto/); Pulse 81; Resp 20; Temp 98.8(TE); Pulse Ox 99% on R/A; Pain 7/10; dsf MDM: 13:00 Heart Tones ordered. sd1 13:01 UA Ordered. EDMS 13:21 NS 0.9% 1000 ml IV at bolus once ordered. le 13:21 NS 0.9% 1000 ml IV at 100 mL/hr continuous ordered. le 13:21 IV Saline Lock ordered. le 13:21 Undress patient appropriately for examination ordered. le 13:21 Acetaminophen Tablet 650 mg PO once ordered. le 13:22 NOTHING BY MOUTH+DIET ordered. EDMS 13:23 Basic Metabolic Profile Ordered. EDMS 13:23 CBC with Diff Ordered. EDMS 13:23 Lipase Ordered. EDMS 13:23 Liver Profile Ordered. EDMS 14:27 UA Reviewed. le 14:27 Basic Metabolic Profile Reviewed. le 14:27 CBC with Diff Reviewed. le 14:27 Liver Profile Reviewed. le 14:27 Lipase Reviewed. le 14:30 US Obs Single Gest Ordered. EDMS 14:53 DUPLEX SCAN LIMITED (DOPPLER) Ordered. EDMS 15:44 Financial registration complete. [email or web address] 16:48 [facility] Payment Agreement was scanned into [employer] and attached to record. [email or web address] 10/03 11:23 T-Sheet-- Draft Copy was scanned into [employer] and attached to record. gb Administered Medications: 10/02 13:33 Drug: NS 0.9% 1000 ml [sodium chloride 0.9 % intravenous solution] Route: IV; Rate: ttb bolus; Site: left antecubital; 15:13 Follow up: IV Status: Completed infusion; IV Intake: 1000ml dsf 13:33 Drug: Acetaminophen 650 mg [acetaminophen 325 mg tablet (2 tabs)] Route: PO; ttb 14:33 Follow up: Pain 7/10 Adult dsf 15:13 Drug: NS 0.9% 1000 ml [sodium chloride 0.9 % injection solution] Route: IV; Rate: 100 dsf mL/hr; Site: left antecubital; 16:02 Follow up: IV Status: Infusion discontinued; IV Intake: 200ml dsf Signatures: Dispatcher [employer] EDArlene Freeman MD MD sd1 Aundrea Guardado, Reg Reg gb Fabiola Webster, [employer] Mckenna Pride RN RN dsf Abena Tarango RN RN ttb Lily Zuñiga, Reg Reg [email or web address] The chart was reviewed and I authenticate all verbal orders and agree with the evaluation and treatment provided.Corrections: (The following items were deleted from the chart) 13:05 13:01 URINE CULTURE+MALCOLM ordered. EDMS EDMS Attachments: 16:48 [facility] Payment Agreement [email or web address] 10/03 11:23 T-Sheet-- Draft Copy gb Chart Complete MTDD
== END 2016-10-02 16:15 | disposition home or self-care (01) ==
LOC: M ED 12:40
DX: O99.89 Other specified diseases and conditions complicating pregnancy, childbirth and the puerperium (principal); R10.9 Unspecified abdominal pain; Z3A.15 15 weeks gestation of pregnancy

== ENCOUNTER → 2016-10-29 | Outpatient (CLI) | payer OTHER ==
--- NOTE | 2016-10-29 14:19 | REP ---
OB ULTRASOUND: Real-time sonographic evaluation of gravid uterus performed. There is a single living intrauterine gestation, estimated gestational age 19 weeks 0 days, EDC 03/25/2017. Today's measurements indicate appropriate growth. BPD 42 mm = 18 weeks 6 days, 46th percentile HC 152 mm = 18 weeks 2 days, 27th percentile AC 132 mm = 18 weeks 5 days, 44th percentile Femur length 27 mm = 18 weeks 3 days, 34th percentile HC/AC ratio 1.15, within normal range. Estimated weight 244 grams, 30th percentile. Cervix closed and measures 4.9 cm in length. heart rate 141 beats per minute. SEEN/GROSSLY UNREMARKABLE Lateral ventricles Yes Posterior fossa Yes Upper lip No Four-chamber heart Yes LVOT Yes RVOT Yes Stomach Yes Cord insertion Yes Three vessel cord Yes Kidneys Yes Bladder Yes Spine Yes position: Vertex. Placenta: Anterior and grade 0 with no previa or abruption. Amniotic fluid: Within normal limits. Posterior right fibroid measures 1.2 x 0.8 x 1.[address] Pemberton MD 10/29/2016 04:18 P
== END ==
LOC: M RAD 11:08
PROVIDERS: ATTEND Advanced Practice Midwife
DX: Z36 Encounter for antenatal screening of mother (principal); Z3A.18 18 weeks gestation of pregnancy

== ENCOUNTER 2016-11-30 11:23 | Emergency (ER) | payer OTHER ==
[~2016-11-30] VITALS: Ht 160 cm; Wt 60.8 kg
[2016-11-30] MEDS ORDERED: PRE-TAB3 PO (11:46)
[2016-11-30] MEDS ORDERED: ONDANSETRON 4 MG ORAL DISINTEGRATING TAB (S0181) PO ONE (12:15)
[2016-11-30 12:46] LABS: MEAN CORPUSCULAR HEMOGLOBIN 30.1 pg (27.0-33.0); MEAN CORPUSCULAR HGB CONC 33.8 g/dl (32.0-36.5); MEAN CORPUSCULAR VOLUME 89.1 fl (80.0-96.0); RED CELL DISTRIBUTION WIDTH 12.3 % (11.5-14.5)
[2016-11-30 13:08] LABS: METHADONE URINE NEGATIVE (NEGATIVE)
[2016-11-30 13:24] LABS: ALBUMIN 3.1 GM/DL (3.2-5.2); ALBUMIN/GLOBULIN RATIO 0.91 (1.00-1.93); ALKALINE PHOSPHATASE 67 U/L (45-117); ALT/SGPT 12 U/L (12-78); ANION GAP 8 MEQ/L (8-16); AST/SGOT 10 U/L (15-37); BILIRUBIN,DIRECT < 0.1 MG/DL (0.0-0.2); BILIRUBIN,TOTAL 0.2 MG/DL (0.2-1.0); BLOOD UREA NITROGEN 4 MG/DL (7-18); CALCIUM LEVEL 8.5 MG/DL (8.5-10.1); CARBON DIOXIDE LEVEL 23 MEQ/L (21-32); CHLORIDE LEVEL 108 MEQ/L (98-107); CREATININE FOR GFR 0.39 MG/DL (0.55-1.02); GLOMERULAR FILTRATION RATE > 60.0 (>60); GLUCOSE, FASTING 78 MG/DL (70-105); POTASSIUM SERUM 4.4 MEQ/L (3.5-5.1); SODIUM LEVEL 139 MEQ/L (136-145); TOTAL PROTEIN 6.5 GM/DL (6.4-8.2)
[2016-11-30 17:17] VITALS: BP 110/58
== END 2016-11-30 17:20 | disposition home or self-care (01) ==
LOC: M ED 12:45
DX: O99.342 Other mental disorders complicating pregnancy, second trimester (principal); F41.9 Anxiety disorder, unspecified; Z3A.23 23 weeks gestation of pregnancy
CPT/HCPCS: 36415; 80048; 80076; 80306; 84443; 85027; 99285; G0480

== ENCOUNTER 2017-02-09 17:47 | Outpatient (CLI) | payer OTHER ==
[~2017-02-09] VITALS: Ht 160 cm; Wt 64.0 kg
[~2017-02-09 17:47] MED LIST: PRE-TAB3 PO
[2017-02-09 17:53] VITALS: BP 120/67
[2017-02-09] MEDS ORDERED: IRON50TA PO (18:34)
[2017-02-09] MEDS ORDERED: MVI -ADULT INJECTION 10 ML VIAL IV ONE (18:45)
[2017-02-09] MEDS ORDERED: MULTIVITAMIN -ADULT INJECTION 10 ML in LR 1,000 ML IV ONE (19:00)
--- NOTE | 2017-02-10 11:12 | HPE ---
DATE OF ADMISSION: 02/09/2017 A 22-year-old 1, para 0, last menstrual period (LMP) 06/18/2016, estimated date of confinement (EDC) 03/25/2017, at 34 weeks of gestation, had an episode of epigastric pain after having a large meal at breakfast and at the xiphisternum, and it went vertical above and below. She had this pain and nothing she did would relieve it. She is known to have heartburn and has been taking antacids for the same. She denies any nausea or vomiting or hemoptysis. Her risk factors is she had a transfer of care at 18 weeks. They are from [place]. She was too late entry for Zika testing. She also has suicidal ideations and has been in counseling, as well as marital discord counseling. Things seemed to go wrong after her joined the [employer]. She also suffers from anemia, and she has had serial growth scans because the baby was underweight. Laboratories show she is B+, HIV negative, hepatitis negative, rapid plasma reagin (RPR) negative, rubella immune, varicella antibody positive, urine negative, gonorrhea and chlamydia are negative. 1-hour glucose was 97. CF was negative. On examination, she does not appear to be in any distress. There is a category 1 strip with good accelerations, no contractions. She is normocephalic, atraumatic. Neck: Full range of motions. Pupils equal and reactive to light. Distal pulses are symmetric. No evidence of deep venous thrombosis (DVT), pulmonary embolism (PE), or superficial phlebitis. Lungs are clear to bases. No wheezes or rhonchi. No costovertebral angle (CVA) tenderness. Nontender abdomen. Symphysis fundus height is appropriate. Bowel sounds in all four quadrants. heart is present. No rashes, lesions or pruritus. No arthralgia or myalgia. No complaints of cough, wheezes, shortness of breath, or dyspnea on exertion. She has no chest pain. Not bleeding. Neuro complete. No incontinency, urgency, or frequency. No nausea, vomiting, diarrhea, or constipation. She has no diabetic issues. No gynecology (FILLER WIPER) issues. Past medical history is related to anxiety and suicidal ideations, as well as marital discord. Family history is noncontributory. She does not smoke or drink or abuse drugs. She is . There is no domestic violence. Her urine is 1.005, pH 7, 2+ ketones, and trace protein. She had an ultrasound for growth. The baby is at the 36th percentile. Amniotic fluid index (CARLENE) was normal at 10.78. Cervix was 3.77. The baby is 1671 grams. fibronectin was negative. No vaginal bleeding or discharge. On examination, the cervix by sterile speculum, the cervix was closed, high, and posterior. Blood pressure was 120/67, respirations 18, pulse 116, temperature 97.6. Reflexes were normal. Eyegrounds were normal. No right upper quadrant pain, and we can establish the pain is in the xiphisternum, because when you depress on it, it gives her the similar pain that she had before. In summary, we have a 34-weeker with gastrointestinal (GI) upset secondary to a large meal, xiphisternum pain, an active fetus. No other presenting issues. The patient was discharged and counseled. She has an appointment on Saturday with her centering group. We spent 1 hour with the patient and her .
== END 2017-02-09 20:12 | disposition home or self-care (01) ==
LOC: M LDO 17:47
PROVIDERS: ATTEND Obstetrics & Gynecology
DX: O26.893 Other specified pregnancy related conditions, third trimester (principal); Z3A.34 34 weeks gestation of pregnancy; R10.13 Epigastric pain; D64.9 Anemia, unspecified; O99.343 Other mental disorders complicating pregnancy, third trimester; O21.9 Vomiting of pregnancy, unspecified; O99.013 Anemia complicating pregnancy, third trimester

== ENCOUNTER 2017-03-31 01:26 | Inpatient (IN) | payer OTHER ==
[~2017-03-31] VITALS: Ht 160 cm; Wt 66.0 kg
[2017-03-31] VITALS (62 sets, daily range): BP systolic 88–134; BP diastolic 50–78
[~2017-03-31 01:26] MED LIST changes: +IRON50TA PO
[2017-03-31] MEDS ORDERED: LR 1,000 ML IV SCH (02:06)
[2017-03-31] MEDS ORDERED: OXYTOCIN DRIP 30 UNITS in APPROPRIATE DILUENT 1 EA IV SCH ×2 (02:15→22:48)
[2017-03-31 02:31] LABS: MEAN CORPUSCULAR HEMOGLOBIN 30.1 pg (27.0-33.0); MEAN CORPUSCULAR HGB CONC 34.4 g/dl (32.0-36.5); MEAN CORPUSCULAR VOLUME 87.3 fl (80.0-96.0); RED CELL DISTRIBUTION WIDTH 13.5 % (11.5-14.5); WHITE BLOOD COUNT 10.5 K/mm3 (4.0-10.0)
[2017-03-31] MEDS: DOCUSATE SODIUM 100 MG CAP PO SCH (08:13)
[2017-03-31] MEDS ORDERED: BUTORPHANOL 2 MG/ML INJ (J0595) IV ONE (13:45)
[2017-03-31] MEDS ORDERED: PROMETHAZINE INJ 25 MG/ML VIAL (J2550) IV ONE (13:45)
[2017-03-31] MEDS ORDERED: FENTANYL 2MCG/ML ROPIVACAINE 0.2% IN 0.9% NACL 200ML IVBAG As Ordered ONE (15:34)
[2017-03-31] MEDS ORDERED: NALOXONE INJ 0.4 MG/1 ML VIAL (J2310) IV PRN (19:00)
[2017-03-31] MEDS ORDERED: EPIDURAL COMMENT XX SCH (19:00)
[2017-03-31] MEDS ORDERED: diphenhydrAMINE INJ 50MG/ML VIAL (J1200) IV PRN (19:00)
[2017-03-31] MEDS ORDERED: LACTATED RINGER'S 1000 ML IV PRN (19:00)
[2017-03-31] MEDS ORDERED: ePHEDrine SULFATE 25 MG/5 ML(5MG/ML) SYRINGE IV PRN (19:00)
[2017-03-31] MEDS ORDERED: EPIDURAL/PCA KEYS XX PRN (19:00)
[2017-03-31] MEDS ORDERED: ONDANSETRON 4MG/2ML VIAL (J2405) IV PRN ×2 (19:00→23:00)
[2017-03-31] MEDS ORDERED: REFRIGERATOR IV KEYS XX PRN (19:00)
[2017-03-31] MEDS ORDERED: FENTANYL/ROPIVACAINE/NACL BAG 200 ML EPIDURAL SCH (19:00)
[2017-03-31] MEDS: IBUPROFEN 800 MG TAB PO PRN (22:56)
[2017-03-31] MEDS ORDERED: METHYLERGONOVINE MALEATE 0.2 MG/ML VIAL (J2210) IM PRN (23:00)
[2017-03-31] MEDS ORDERED: PROMETHAZINE 25 MG TAB PO PRN (23:00)
[2017-03-31] MEDS ORDERED: DIBUCAINE 1% OINTMENT 30GM TOP PRN (23:00)
[2017-03-31] MEDS ORDERED: MEASLES,MUMPS,RUBELLA VACCINE INJ (MMR-II) (90707) SC SCH (23:00)
[2017-03-31] MEDS ORDERED: RHOGAM 300 MCG (1500 IU) INJ (J2790) IM SCH (23:00)
[2017-04-01] MEDS: ACETAMINOPHEN 500 MG TAB PO PRN ×3 (03:16→20:37)
[2017-04-01 05:28] VITALS: BP 109/55
[2017-04-01] MEDS: IBUPROFEN 800 MG TAB PO PRN (07:24)
[2017-04-01] MEDS: PRENATAL VITAMINS CHEWABLE TABLET PO SCH (07:24)
[2017-04-01] MEDS: DOCUSATE SODIUM 100 MG CAP PO SCH ×2 (09:00→20:36)
[2017-04-01 17:55] VITALS: BP 114/56
[2017-04-02 06:00] VITALS: BP 117/64
[2017-04-02] MEDS: ACETAMINOPHEN 500 MG TAB PO PRN (06:26)
[2017-04-02] MEDS: PRENATAL VITAMINS CHEWABLE TABLET PO SCH (07:34)
[2017-04-02] MEDS: DOCUSATE SODIUM 100 MG CAP PO SCH (07:34)
[2017-04-02] MEDS ORDERED: COLA100C5 PO (10:35)
[2017-04-02] MEDS ORDERED: NUPE1OIN2 TOP (10:44)
[2017-04-02] MEDS ORDERED: ACET50TA PO (10:44)
[2017-04-02] MEDS ORDERED: IBUP-1114 PO (10:44)
== END 2017-04-02 12:25 | disposition home or self-care (01) | DRG 775 ==
LOC: M LDO 01:26 → M LDI 01:59 → M OBS 23:10
PROVIDERS: ADMIT Obstetrics & Gynecology; ATTEND Obstetrics & Gynecology
PROC: 10E0XZZ Delivery of Products of Conception, External Approach (ICD-10-PCS; principal; 2017-03-31)
PROC: 0HQ9XZZ Repair Perineum Skin, External Approach (ICD-10-PCS; 2017-03-31)
DX: O48.0 Post-term pregnancy (principal); Z37.0 Single live birth; Z3A.40 40 weeks gestation of pregnancy; O42.02 Full-term premature rupture of membranes, onset of labor within 24 hours of rupture; O70.0 First degree perineal laceration during delivery

== ENCOUNTER → 2018-03-14 | Outpatient (REF) | LOC: M LAB 10:03 | DX: Z02.89 Encounter for other administrative examinations (principal) ==

== ENCOUNTER 2018-06-02 08:43 | Emergency (ER) | payer OTHER | END 2018-06-02 09:40 | disposition home or self-care (01) | LOC: M ED 08:43 | DX: M77.11 Lateral epicondylitis, right elbow (principal); M75.21 Bicipital tendinitis, right shoulder | CPT/HCPCS: 99282 ==

== ENCOUNTER 2018-08-05 02:47 | Emergency (ER) | payer OTHER ==
[2018-08-05] MEDS: ONDANSETRON 4MG/2ML VIAL (J2405) IV (03:54)
[2018-08-05] MEDS: NS 1,000 ML IV (03:54)
[2018-08-05] MEDS: ONDANSETRON 4 MG ORAL DISINTEGRATING TAB (Q0162 PER 1MG) PO (04:45)
== END 2018-08-05 04:54 | disposition home or self-care (01) ==
LOC: M ED 02:47
DX: A08.4 Viral intestinal infection, unspecified (principal); F41.9 Anxiety disorder, unspecified
CPT/HCPCS: J2405